=== PATIENT | female | born 1965 | race Caucasian/White ===

== ENCOUNTER 2016-08-29 10:11 | Outpatient (CLI) ==
[2016-05-23 14:03] VITALS: BMI 27.6
--- NOTE | 2016-08-29 12:07 | MRI ---
EXAM: MRI brain without IV contrast. DATE: 08/29/2016. HISTORY: Headaches, neck pain. TECHNIQUE: Sagittal T1W, axial T2W, axial FLAIR, axial T1W, axial DWI, and coronal T2W GRE sequence s of the brain were obtained using 1.2 Rica magnet. No IV contrast. COMPARISON: None. FINDINGS: The ventricles, cisterns, and subarachnoid spaces are normal in size and configuration. No midline shift, mass effect or abnormal extra-axial fluid collection is apparent. Mildly prominen t Virchow-Kwabena spaces are observed in the bilateral parietal barroso radiata white matter near the a trium of each lateral ventricle. No acute infarct, hemorrhage or neoplasm is identified. Areas of T2W/FLAIR hyperintensity are observed in the white matter abutting the anterior horn and atrium of e ach lateral ventricle. A handful of 2-5 mm diameter, T2W/FLAIR bright foci are scattered in the cor anmol radiata and subcortical white matter bilaterally. The rubio - white matter differentiation is no rmal. T2W GRE dark signal within the region of the pineal gland suggests benign pineal calcificatio n. The 7th/8th cranial nerve complexes, cerebellopontine angles, brainstem, and visible cervical sp inal cord are normal. There is no cerebellar tonsillar ectopia. The pituitary gland is normal in s ize and signal. Corpus callosum is normal in size and configuration. Left vertebral artery is heidi nant. Right vertebral artery is diminutive in size. Flow voids are present in the major intracrani al arteries and in the dural venous sinuses. No aneurysm, AVM or dural venous sinus thrombosis is a pparent. No orbit abnormality is identified. The mastoid air cells are unremarkable. There is no acute sinusitis. Right middle turbinate moderate sized meghana bullosa is observed, and contains an intraluminal rounded 4.7 mm T2W bright, T1W intermediate signal focus (likely retention cyst). No n haseeb mass or lymphadenopathy is detected. No calvarial neoplasm or acute fracture is evident. IMPRESSIONS: 1. No acute infarct, hemorrhage, mass or hydrocephalus. 2. Minimal/mild supratentorial small vessel disease. 3. Right middle turbinate meghana bullosa contains small retention cyst.
== END 2016-08-29 10:12 | disposition home or self-care (01) ==
LOC: RAD 10:11
PROVIDERS: ATTEND Family Medicine
DX: M54.2 Cervicalgia (principal); R51 Headache

== ENCOUNTER 2016-09-02 09:55 | Outpatient (CLI) ==
[2016-05-23 14:03] VITALS: BMI 27.6
--- NOTE | 2016-09-02 12:01 | DI ---
EXAM: Cervical spine five views HISTORY: Neck pain COMPARISON: None TECHNIQUE: Five views cervical spine were performed including oblique views FINDINGS: Vertebral bodies are normal in height. No fracture. Intervertebral disc spaces maintain ed. No subluxation. Neural foramen are patent. Prevertebral soft tissues appear normal. IMPRESSION: Normal examination
== END 2016-09-02 09:56 | disposition home or self-care (01) ==
LOC: RAD 09:55
PROVIDERS: ATTEND Family Medicine
DX: M54.2 Cervicalgia (principal)

== ENCOUNTER 2016-09-09 12:25 | Outpatient (CLI) ==
[2016-05-23 14:03] VITALS: BMI 27.6
--- NOTE | 2016-09-10 21:16 | MRI ---
EXAM: Cervical spine MRI without contrast. HISTORY: Neck pain. COMPARISON: Cervical spine radiographs 09/02/2016. TECHNIQUE: Multiplanar, multisequence MR images were acquired of the cervical spine without contras t. FINDINGS: The craniocervical junction is unremarkable and the cervical cord has normal signal inten sity. The cervical vertebrae normal in height, alignment and intrinsic bone marrow signal. There i s a benign intraosseous hemangioma at C3. Minor ventral spondylosis is present at C4-5. There are no paravertebral masses. The thyroid gland is mildly enlarged and heterogeneous and it contains a 2.8 mm T2 hyperintensity in the superior right lobe, a 2.6 mm x 3.5 mm x 5.2 mm T2 hyperintensity slightly more inferiorly in t he medial right lobe and a 3.1 mm x 4.4 mm x 3.9 mm T2 hyperintensity laterally in the right lobe. Statistically these likely represent cysts or adenomas. Small perineural cysts are present in the c ervical spine. There are no paravertebral masses. Visualized lung apices are clear. C2-3, C3-4: The intervertebral discs are normal. There is no central canal stenosis or foraminal st enosis. C4-5: There is a mild disc bulge without central canal stenosis. C5-6: There is a mild disc bulge without central canal stenosis. C6-7: There is a minor disc bulge that is considered physiologic. C7-T1: The intervertebral disc is normal. IMPRESSION: 1. No cervical disc herniations, central canal stenosis or foraminal stenosis. 2. Borderline enlarged thyroid gland with three small 2.6 mm to 5 mm T2 hyperintensities in the rig ht lobe that may represent cysts or adenomas. Thyroid ultrasound could better define the anatomy.
== END 2016-09-09 12:26 | disposition home or self-care (01) ==
LOC: RAD 12:25
PROVIDERS: ATTEND Family Medicine
DX: M54.2 Cervicalgia (principal)

== ENCOUNTER 2016-09-21 09:06 | Outpatient (CLI) ==
[2016-05-23 14:03] VITALS: BMI 27.6
--- NOTE | 2016-09-21 10:53 | US ---
EXAM: Thyroid ultrasound HISTORY: Thyroid nodule COMPARISON: None TECHNIQUE: Thyroid ultrasound was performed FINDINGS: Right thyroid measures 2.3 x 1.9 x 5.2 cm. Left thyroid measures 1.7 x 1.9 x 5.0 cm. Th yroid isthmus measures 0.5 cm. Thyroid is heterogeneous in echogenicity and normal in vascularity. There are several bilateral thyroid nodules. Nodules include. Right inferior thyroid, partially c alcified, 0.6 x 0.4 x 0.7 cm. Right superior thyroid, isoechoic, 1.0 x 1.0 x 1.1 cm. Right inferio r thyroid, hypoechoic and may be partially cystic, 0.5 x 0.4 x 0.8 cm. Left inferior thyroid, hypoe choic, 1.0 x 0.7 x 0.9 cm. Left mid thyroid, mildly hypoechoic, 0.3 x 0.2 x 0.4 cm IMPRESSION: 1. Bilateral thyroid nodules. Sonographic follow-up recommended 12 months for reevaluation. 2. Heterogeneous thyroid, nonspecific
== END 2016-09-21 09:07 | disposition home or self-care (01) ==
LOC: RAD 09:06
PROVIDERS: ATTEND Family Medicine
DX: E04.1 Nontoxic single thyroid nodule (principal)

== ENCOUNTER 2017-10-25 16:08 | Outpatient (CLI) ==
[2016-05-23 14:03] VITALS: BMI 27.6
--- NOTE | 2017-10-25 16:43 | DI ---
EXAM: CERVICAL SPINE, 5 VIEWS HISTORY: . FINDINGS: Frontal view reveals no scoliosis. Lateral masses of C1-C2 are normally aligned and the o dontoid process is intact. Lateral views of the spine demonstrate normal alignment without spondylo listhesis. Vertebral body height and disc spaces appear normal. Facet joints are normally placed an d prevertebral soft tissues normal thickness. Oblique views reveal no bony encroachment upon the neur al foramina. IMPRESSION: Unremarkable exam.
--- NOTE | 2017-10-25 16:46 | DI ---
EXAM: THORACIC SPINE HISTORY: Back pain FINDINGS: Thoracic spine three-view. Frontal view reveals no scoliosis. Bone density appears nor mal. Lateral views demonstrate normal vertebral body height, disc spaces and alignment. No acute fr acture. IMPRESSION: Unremarkable study.
== END 2017-10-25 16:09 | disposition home or self-care (01) ==
LOC: RAD 16:08
PROVIDERS: ATTEND Family Medicine
DX: M54.9 Dorsalgia, unspecified (principal); M54.2 Cervicalgia; I10 Essential (primary) hypertension

== ENCOUNTER 2017-11-10 12:07 | Outpatient (CLI) ==
[2016-05-23 14:03] VITALS: BMI 27.6
--- NOTE | 2017-11-10 16:47 | MRI ---
EXAM: MRI cervical spine without IV contrast. DATE: 10 November 2017. HISTORY: Neck pain and upper back pain. TECHNIQUE: Sagittal and axial T1W and T2W sequences of the cervical spine along with sagittal IR and coronal T2W sequences were obtained using 1.2 [place] magnet. Motion artifacts on several sequences l imit overall sensitivity. No IV contrast. COMPARISON: C-spine series 10/25/2017. MRI C-spine 09 September 2016. FINDINGS: There is no cervical scoliosis. No acute c-spine fracture, subluxation, osseous malignanc y, or jumped facet is evident. Cervical vertebra are normal in height. T2W/T1W bright, 3.5 mm focus in the C3 body is consistent with a benign hemangioma. T1W bone marrow signal is similar to the int ervertebral discs, but mildly brighter than the paraspinal muscles. Intervertebral discs are normal in height. Tiny anterior osteophytes noted at C4-5 and C5-6. Cervical and upper thoracic spinal cor d reveals no syrinx, cord edema, myelomalacia, or neoplasm. Visible brainstem and cerebellum are unremarkable. No mastoid disease detected. Minor palatine tons il prominence is noted. Trachea, larynx, and epiglottis are unremarkable. No definitive thyroid, larry bmandibular, or parotid gland neoplasm is revealed. No suspicious neck mass, cervical lymphadenopath y, apical lung mass, pneumonia, or pleural effusion is apparent. Segmental analysis: C2-3: Normal. C3-4: Minor right paracentral disc bulge (1.2 mm AP x 5 mm transverse) does not contact the cord. C anal is 12.9 mm AP. Each foramen is patent. C4-5: Small posterior disc bulge (1.6 mm AP) does not contact the cord. Canal is 11.8 mm AP. Each foramen is patent. C5-6: Normal. C6-7: Normal, except for bilateral foraminal T2W bright, T1W dark foci (6.3 mm diameter right, 4.8 m m diameter left) consistent with perineural cysts. C7-T1: Normal, except for bilateral foraminal T2W bright, T1W dark foci (6.5 mm diameter right, 4.2 mm diameter) likely representing perineural cysts. T1-2: Normal, except for right foraminal T2W bright, T1W dark, 2.7 mm diameter perineural cyst. IMPRESSIONS: 1. C-spine minor spondylosis and minor DDD. 2. No cervical cord compression, central stenosis, or foraminal stenosis. 3. Multilevel foraminal benign perineural cysts. 4. Benign hemangioma in the C3 vertebral body. 5. Borderline T1W bone marrow signal. DDX: Normal variation vs red marrow reconversion. Correlate for anemia.
--- NOTE | 2017-11-11 08:56 | MRI ---
EXAM: MRI thoracic spine without IV contrast. DATE: 10 November 2017. HISTORY: Thoracic back pain. TECHNIQUE: Sagittal and axial T1W and T2W sequences along with sagittal IR and coronal T2W sequences of the thoracic spine were obtained using 1.2 [place] magnet. No IV contrast. COMPARISON: T-spine series 10/25/2017. MRI C-spine 10 November 2017. FINDINGS: There are 12 thoracic vertebra with paired ribs. Minor leftward curvature of the upper th oracic spine is seen. No acute T-spine fracture, subluxation, osseous malignancy, or jumped facet is apparent. Thoracic vertebra are normal in height. Bone marrow signal is normal. Intervertebral di scs are normal in height. Conus medullaris terminates at L1. No cord edema, syrinx, myelomalacia, o r neoplasm is identified. Thyroid isthmus measures 8.5 mm AP, without distinct focal mass. Trachea, thoracic esophagus, medias tinum, the thoracic aorta are unremarkable. No paraspinal mass, chest wall mass, rib fracture or rib lesion is seen. No lung mass, pneumonia, or pleural effusion is apparent. Heart size appears overa ll normal. Visible portions of the liver, spleen, adrenal glands, and kidneys are normal. Signal ab normalities within the gallbladder likely artifacts; however, tiny septations, intraluminal stones or nodules cannot be totally excluded on these limited images. An ovoid 10 x 8.5 mm focus at the infero medial margin of the spleen is likely benign splenule. Segmental analysis: T1-2: Normal, except for bilateral foraminal T2W bright, T1W dark foci (3.5 mm right, 3.6 mm). T2-3: Normal, except for bilateral foraminal T2W bright, T1W dark foci (5.8 mm right, 3.1 mm left). T3-4: Normal. T4-5: Normal, except for left foraminal T2W bright, T1W dark focus (6.4 x 6.7 mm). T5-6: Normal. T6-7: Normal. T7-8: Normal. T8-9: Normal, except for right foraminal T2W bright, T1W dark focus (1 mm). T9-10: Normal, except for left foraminal T2W bright, T1W dark focus (2 mm). T10-11: No disc protrusion or central stenosis. There is mild bilateral facet arthropathy. T2W gonzalez ght, T1W dark focus (3 x 3.7 mm) is seen in the left foramen. T11-12: Normal, except for bilateral foraminal T2W bright, T1W dark foci (6.3 mm right, 5 mm left). T12-L1: Normal, except for left foraminal T2W bright, T1W dark focus (6.4 mm). IMPRESSIONS: 1. No thoracic disc protrusion/bulge, central stenosis or foraminal stenosis. 2. Multilevel foraminal T2W bright foci consistent with perineural cysts. 3. Mild bilateral facet arthropathy at T10-11. 4. Thyroid isthmus enlargement. Recommend US.
== END 2017-11-10 12:08 | disposition home or self-care (01) ==
LOC: RAD 12:07
PROVIDERS: ATTEND Family Medicine
DX: M54.2 Cervicalgia (principal); G89.29 Other chronic pain; M54.6 Pain in thoracic spine

== ENCOUNTER 2018-09-07 18:11 | Emergency (ER) | payer OTHER ==
[2018-09-07 18:18] VITALS: BP 136/88; TEMP 98.2; BMI 28.2
[2018-09-07] MEDS ORDERED: SODIUM CHLORIDE 1,000 ML IV STA (18:42)
--- NOTE | 2018-09-07 18:46 | ED.PDOC ---
General <ANIRDUH ERIC - Last Filed: 09/07/18 20:03> Stated Complaint: RLQ ABDOMINAL PAIN Time Seen by Physician: 18:18 (SEE WITH JOSEPH LAST MEAL 4 HOURS AGO, LAST BM TODAY) Mode of Arrival: Walk-In Information Source: Patient Exam Limitations: No limitations Nursing and Triage Documentation Reviewed and Agree: Yes Does patient meet sepsis criteria?: No System Inflammatory Response Syndrome: Not Applicable <BUCKY KAISER - Last Filed: 09/10/18 12:59> ED Provider: Dr. BUCKY KAISER Chief Complaint: Abdominal Pain Primary Care Provider: ANIRUDH BAKER Sepsis Protocol: For patient's 13 years and over: Temp is 96.8 and below OR 101 and greater Pulse >90 BPM Resp >20/minute Acutely Altered Mental Status Are patient's symptoms suggestive of a new infection, such as: -Pneumonia -Skin, Soft Tissue -Endocarditis -UTI -Bone, Joint Infection -Implantable Device -Acute Abdominal Infection -Wound Infection -Meningitis -Blood Stream Catheter Infection -Unknown GI Complaint Exam - Abdominal Pain Complaint/Exam Onset: Gradual Duration: 1 DAY Symptoms Are: Still present Timing: Constant Initial Severity: Moderate Current Severity: Moderate Location of Pain: RLQ Radiates To: Denies: Chest, Back, Flank, LLQ, RLQ, Inguinal Character: Reports: Sharp Aggravating: Reports: None Alleviating: Reports: None Associated Signs and Symptoms: Denies: Diaphoresis, Fever, Cough, Chest pain, Dizziness, Back pain, Constipation, Blood in stool, Dysuria, Urinary frequency, Decreased urine output, Decreased appetite, Vaginal bleeding, Vaginal discharge , Nausea, Vomiting, Diarrhea, Sore throat, Decreased activity AAA Risk Factors: Reports: None Cardiac Risk Factors: Reports: None Ectopic Risk Factors: Reports: None Ovarian Torsion Risk Factors: Reports: None Surgical Obstruction Risk Factors: Reports: None Related Surgical History: Reports: None Patient Rh Status: Unknown Abdominal Findings: Present: Rebound tenderness (RLQ) Differential Diagnoses: Appendicitis, Bowel Obstruction <BUCKY KAISER - Last Filed: 09/10/18 12:59> Review of Systems - Review Of Systems Constitutional: Reports: No symptoms Eyes: Reports: No symptoms Ears, Nose, Mouth, Throat: Reports: No symptoms Respiratory: Reports: No symptoms Cardiac: Reports: No symptoms GI: Reports: Abdominal pain (RLQ) : Reports: No symptoms Musculoskeletal: Reports: No symptoms Skin: Reports: No symptoms Neurological: Reports: No symptoms Endocrine: Reports: No symptoms Hematologic/Lymphatic: Reports: No symptoms All Other Systems: Reviewed and Negative <AWILDABUCKY - Last Filed: 09/10/18 12:59> Past Medical History - Past Medical History Previously Healthy: Yes Endocrine: Reports: None Cardiovascular: Reports: Hypertension Respiratory: Reports: Asthma Hematological: Reports: None Gastrointestinal: Reports: None Genitourinary: Reports: None Neuro/Psych: Reports: None Musculoskeletal: Reports: None Cancer: Reports: None Last Menstrual Period: june 2018 - Surgical History General Surgical History: Reports: ( x 2 ) - Family History Family History: Reports: Heart, Cancer - Social History Smoking Status: Never smoker Hx Substance Use: No Alcohol Screening: None <AWILDABUCKY - Last Filed: 09/10/18 12:59> Physical Exam - Physical Exam Appearance: Well-appearing, No pain distress, Well-nourished Eyes: HAYLEE, EOMI, Conjunctiva clear ENT: Ears normal, Nose normal, Oropharynx normal Respiratory: Airway patent, Breath sounds clear, Breath sounds equal, Respirations nonlabored Cardiovascular: RRR, Pulses normal, No rub, No murmur GI/: Soft, Nontender, No masses, Bowel sounds normal, No Organomegaly Musculoskeletal: Normal strength, ROM intact, No edema, No calf tenderness Skin: Warm, Dry, Normal color Neurological: Sensation intact, Motor intact, Reflexes intact, Cranial nerves intact, Alert, Oriented Psychiatric: Affect appropriate, Mood appropriate <AWILDABUCKY - Last Filed: 09/10/18 12:59> Critical Care Note - Critical Care Note Total Time (mins): 0 <BUCKY KAISER - Last Filed: 09/10/18 12:59> Course - Course Hematology/Chemistry: 09/07/18 18:51 09/07/18 18:51 <ANIRUDH ERIC - Last Filed: 09/07/18 20:03> - Course Hematology/Chemistry: 09/07/18 18:51 09/07/18 18:51 <BUCKY KAISER - Last Filed: 09/10/18 12:59> - Course Orders, Labs, Meds: Lab Review 09/07/18 09/07/18 09/07/18 18:51 18:51 18:51 WBC 8.05 RBC 3.64 L Hgb 11.0 L Hct 31.9 L MCV 87.6 MCH 30.2 MCHC 34.5 RDW Coeff of Rufino 11.8 Plt Count 146 Immature Gran % (Auto) 0.1 Neut % (Auto) 65.5 Lymph % (Auto) 24.0 [place] % (Auto) 9.1 Eos % (Auto) 0.9 Baso % (Auto) 0.4 Immature Gran # (Auto) 0.0 Neut # (Auto) 5.3 Lymph # (Auto) 1.9 [place] # (Auto) 0.7 Eos # (Auto) 0.1 Baso # (Auto) 0.0 Sodium 139.9 Potassium 3.38 L Chloride 101.9 Carbon Dioxide 29.4 Anion Gap 11.98 BUN 12.3 Creatinine 0.74 Estimated GFR (MDRD) 82.00 BUN/Creatinine Ratio 16.62 Glucose 121.0 H Calcium 10.06 Total Bilirubin 0.80 AST 18.4 ALT 11.1 Alkaline Phosphatase 65.4 Total Protein 7.28 Albumin 4.30 Globulin 2.98 Albumin/Globulin Ratio 1.44 Amylase 57.0 Lipase 105.7 Serum , Qual Negative Urine Color Urine Clarity Urine pH Ur Specific [place] Urine Protein Urine Glucose (UA) Urine Ketones Urine Blood Urine Nitrite Urine Bilirubin Urine Urobilinogen Ur Leukocyte Esterase Urine Microscopic RBC Urine Microscopic WBC Ur Squamous Epith Cells Ur Transition Epith Cell Urine Bacteria 09/07/18 19:02 WBC RBC Hgb Hct MCV MCH MCHC RDW Coeff of Rufino Plt Count Immature Gran % (Auto) Neut % (Auto) Lymph % (Auto) [place] % (Auto) Eos % (Auto) Baso % (Auto) Immature Gran # (Auto) Neut # (Auto) Lymph # (Auto) [place] # (Auto) Eos # (Auto) Baso # (Auto) Sodium Potassium Chloride Carbon Dioxide Anion Gap BUN Creatinine Estimated GFR (MDRD) BUN/Creatinine Ratio Glucose Calcium Total Bilirubin AST ALT Alkaline Phosphatase Total Protein Albumin Globulin Albumin/Globulin Ratio Amylase Lipase Serum , Qual Urine Color Yellow Urine Clarity Clear Urine pH 6.0 Ur Specific [place] 1.015 Urine Protein Negative Urine Glucose (UA) Negative Urine Ketones Negative Urine Blood 2+ Urine Nitrite Negative Urine Bilirubin Negative Urine Urobilinogen 0.2 Ur Leukocyte Esterase Negative Urine Microscopic RBC 5-10 Urine Microscopic WBC 2-5 Ur Squamous Epith Cells 10-20 Ur Transition Epith Cell 2-5 Urine Bacteria 2+ Orders Category Date Time Status TRANSFER TO OUTSIDE FACILITY .TO [facility] CARE 09/07/18 20:03 Active (MARTHA MO) WRITE TRANSFER/SBAR NOTE ONCE CARE 09/07/18 20:03 Completed DISCHARGE ASSESSMENT ONCE DISCHARGE 09/07/18 20:03 Completed WRITE DISCHARGE NOTE ONCE DISCHARGE 09/07/18 20:03 Completed ED IV/MEDIPORT/POWERPORT .ONCE EMERGENCY 09/07/18 18:42 Active AMYLASE Stat LAB 09/07/18 18:51 Completed CBC W/ AUTO DIFF Stat LAB 09/07/18 18:51 Completed COMPREHENSIVE METABOLIC PANEL Stat LAB 09/07/18 18:51 Completed LIPASE Stat LAB 09/07/18 18:51 Completed SERUM Stat LAB 09/07/18 18:51 Completed URINALYSIS C & S IF INDICATED Stat LAB 09/07/18 19:02 Completed URINE CULTURE Stat LAB 09/07/18 19:02 Completed 0.9 % Sodium Chloride [Saline Flush] MEDS 09/07/18 18:42 Discontinued 1 syr IVF PRN PRN Ceftriaxone Sodium [Rocephin] 1 gm MEDS 09/07/18 18:47 Discontinued 0.9 % Sodium Chloride [Sodium Chloride] 50 ml IV ONCE Meperidine HCl/Pf [Demerol 25 mg/ml Vial] MEDS 09/07/18 19:11 Discontinued 25 mg IVP ONCE STA Ondansetron HCl/Pf [Zofran 4 mg/2 ml] MEDS 09/07/18 19:11 Discontinued 4 mg IVP ONCE STA Sodium Chloride 0.9% [Sodium Chloride] 1,000 ml MEDS 09/07/18 18:42 Discontinued IV 125 mls/hr CT ABDOMEN/PELVIS WO CONTRAST Stat RADS 09/07/18 18:43 Completed Medications Discontinued Medications Generic Name Dose Route Start Last Admin Trade Name Freq PRN Reason Stop Dose Admin Sodium Chloride 1,000 mls @ 125 mls/hr 09/07/18 18:42 09/07/18 19:04 Sodium Chloride IV 09/08/18 02:41 125 mls/hr .Q8H STA Administration Ceftriaxone Sodium 1 gm/ 50 mls @ 75 mls/hr 09/07/18 18:47 09/07/18 19:05 Sodium Chloride IV 09/07/18 19:26 75 mls/hr ONCE STA Administration Meperidine HCl 25 mg 09/07/18 19:11 09/07/18 20:09 Demerol 25 Mg/Ml Vial IVP 09/07/18 19:12 25 mg ONCE STA Administration Ondansetron HCl 4 mg 09/07/18 19:11 09/07/18 19:20 Zofran 4 Mg/2 Ml IVP 09/07/18 19:12 4 mg ONCE STA Administration Sodium Chloride 1 syr 09/07/18 18:42 09/07/18 19:04 Saline Flush IVF 1 syr PRN PRN Administration To flush IV Vital Signs: Temp Pulse Resp BP Pulse Ox 09/07/18 18:13 98.2 F 97 H 16 136/88 96 Departure - Departure Transfer Form Completed: Yes Disposition Discussed With: Patient, Family <ANIRUDH ERIC - Last Filed: 09/07/18 20:03> - Departure Time of Disposition: 19:00 Pt referred to PMD for follow-up: Yes IPMP verified?: No <BUCKY KAISER - Last Filed: 09/10/18 12:59> - Departure Disposition: TSF SHORT-TRM HOSP Discharge Problem: Abdominal pain Abdominal pain Qualifiers: Abdominal location: right lower quadrant Qualified Code(s): R10.31 - Right lower quadrant pain Condition: Good Allergies/Adverse Reactions: Allergies codeine Adverse Reaction (Verified 09/07/18 18:20) morphine Adverse Reaction (Verified 09/07/18 18:20) Penicillins Adverse Reaction (Verified 09/07/18 18:20) Home Medications: Ambulatory Orders Losartan Potassium 100 mg PO DAILY 05/23/16
[2018-09-07] MEDS ORDERED: ROCEPHIN 1 GM in SODIUM CHLORIDE 50 ML IV STA (18:47)
[2018-09-07] MEDS ORDERED: ROCEPHIN ONE (19:02)
[2018-09-07] MEDS ORDERED: ZOFRAN 4 MG/2 ML IVP STA (19:11)
[2018-09-07] MEDS ORDERED: DEMEROL 25 MG/ML VIAL IVP STA (19:11)
[2018-09-07] MEDS ORDERED: ZOFRAN 4 MG/2 ML ONE (19:12)
[2018-09-07] MEDS ORDERED: DEMEROL 25 MG/ML VIAL ONE (19:13)
--- NOTE | 2018-09-07 19:27 | CT ---
Exam: CT abdomen pelvis without intravenous contrast. Comparison: None available. Reason for exam: Right lower quadrant pain. FINDINGS: 4 mm nodule in the right middle lobe on axial image #3. 9 mm nodule in the left lung base on axial image number 15. No pleural effusion, or focal consolidation. Image interpretation is limited by the lack of intravenous contrast administration. There is a small hiatal hernia. Stone is seen in the dependent portion of the gallbladder. Multiple nodules are seen adjacent to the spleen presumably splenules although evaluation is limited by the lack of intravenous contrast. The adrenal glands and pancreas appear grossly unremarkable. No hydronephrosis or hydroureter is seen in either kidney. 3 mm stone is seen in the right renal par enchyma on axial image number 60 The bladder is incompletely evaluated secondary to non distension. No focal small bowel dilatation or transition point is seen. Diffuse inflammatory changes are seen in the right lower quadrant. There is mild periappendiceal fat stranding as seen on axial image number 98. The appendix measures 9.38 mm on coronal image number 3 4. Hypodensity is seen in the right su pelvis adjacent uterus presumably an ovarian/adnexal cyst also with surrounding inflammatory change. Impression: 1. Critical finding/critical result: Inflammatory findings in the right lower quadrant with periapp endiceal fat stranding and appendix measuring 9.38 mm. Imaging findings raise consideration for acut e appendicitis. The appendix appears to terminate in the region of the right adnexa/ovary with surro unding inflammatory change. This finding may represent right adnexal pathology resulting in periappe ndiceal fat stranding or appendiceal pathology resulting in right adnexal inflammation as seen on cor onal image number 34. Surgical consultation is recommended. 2. No intra-abdominal free air or pelvic free fluid. 3. Cholelithiasis without cholecystitis. 4. Right-sided nephrolithiasis without hydronephrosis. 5. Pulmonary nodules measuring up to 9 mm in 3-month follow-up CT of the chest is recommended for fu rther characterization. Imaging findings were discussed directly with the emergency room physician at 1922 hours on 09/07/19 19.
== END 2018-09-07 20:20 | disposition short-term general hospital (02) ==
LOC: ED 18:11
DX: R10.31 Right lower quadrant pain (principal); I10 Essential (primary) hypertension; R11.2 Nausea with vomiting, unspecified
CPT/HCPCS: 36415; 80053; 81001; 82150; 83690; 84703; 85025; 87086; 96361; 96365; 96375; 99285

== ENCOUNTER 2018-09-18 15:29 | Outpatient (CLI) ==
--- NOTE | 2018-09-18 16:23 | US ---
EXAM: Transvaginal pelvic ultrasound. History: Pelvic pain. Technique: Multiple sonographic images through the pelvis were obtained. Color duplex Doppler was u sed to interrogate vascular flow. Findings: The uterus measures 8.3 cm x 5.1 cm x 4.8 cm. Multiple Nabothian cysts are seen within the cervix wi th largest cluster of cysts measuring 2.1 cm. Endometrium measures 0.6 cm in thickness. Right ovary was not seen probably due to obscuration by bowel gas. Left ovary is normal in size. Blood flow wa s documented within the left ovary. Small amount of free fluid seen in the pelvis. Impression: 1. Small amount of free pelvic fluid. 2. Nabothian cysts within the cervix
== END 2018-09-18 15:30 | disposition home or self-care (01) ==
LOC: RAD 15:29
PROVIDERS: ATTEND Family Medicine
DX: R10.2 Pelvic and perineal pain (principal)